=== PATIENT | female | born 1955 | race Caucasian/White ===

== ENCOUNTER 2020-11-24 08:33 | Emergency (ER) | payer OTHER ==
[~2020-11-24] VITALS: Ht 165.1 cm; Wt 72.6 kg
[2020-11-24 12:48] VITALS: BP 126/59
== END 2020-11-24 12:48 | disposition home or self-care (01) ==
LOC: ER 08:33
DX: S52.122A Displaced fracture of head of left radius, initial encounter for closed fracture (principal); S20.211A Contusion of right front wall of thorax, initial encounter; S00.83XA Contusion of other part of head, initial encounter; W10.9XXA Fall (on) (from) unspecified stairs and steps, initial encounter; Y93.89 Activity, other specified; Y92.89 Other specified places as the place of occurrence of the external cause; Y99.8 Other external cause status